=== PATIENT | female | born 1960 | race Caucasian/White ===

== ENCOUNTER 2017-06-11 11:31 | Emergency (ER) | payer OTHER ==
[~2017-06-11] VITALS: Ht 152.4 cm; Wt 58.1 kg
[~2017-06-11 11:31] MED LIST: CEPH-443 PO; ERYT1OIN6 RIGHT EYE; TRAM50TA2 PO; VIGA RIGHT EYE
[2017-06-11 11:36] VITALS: Ht 152.4 cm; Wt 58.1 kg
--- NOTE | 2017-06-11 12:50 | ERD ---
ER Documentation Chief Complaint Chief Complaint DIZZINESS ON AND OFF X 3 MONTHS. PAIN IN BOTH EYES. NO CARDIAC HX. HPI This is a 56-year-old female who presents the emergency department today complaining of intermittent dizziness for the past 6 months. States sometimes she feels dizzy when she walks and sometimes she feels dizzy when she goes from laying down to sitting. States that sometimes she gets a frontal headache. Denies any fevers or chills blurred vision, vomiting.. Denies any other medical problems. ROS All systems reviewed and are negative except as per history of present illness. Medications Home Meds Active Scripts Meclizine Hcl* (Antivert*) 12.5 Mg Tab, 12.5 MG PO Q6H Y for DIZZINESS, #20 TAB Prov:NAVI MANTILLA PA-C 06/11/17 Moxifloxacin Hcl* (Vigamox*) 0.5% - 3 Ml Opht, 1 DROP RIGHT EYE TID for 7 Days, EA Prov:BRADY REAL PA-C 07/27/15 Cephalexin* (Keflex*) 500 Mg Capsule, 500 MG PO QID for 5 Days, CAP Prov:BRADY REAL PA-C 07/27/15 Erythromycin (Erythromycin Opth) 3.5 Gm Oint..gm., 1 APPLIC RIGHT EYE QID for 5 Days, EA Prov:CHAVEZ ABRAHAM NP 07/22/15 Tramadol HCl (Tramadol HCl) 50 Mg Tab, 50 MG PO Q6 Y for PAIN, #10 TAB Prov:JIMENEZ CORONADO 04/05/15 Allergies Allergies: Coded Allergies: No Known Allergy (Unverified , 07/27/15) PMhx/Soc History of Surgery: No Anesthesia Reaction: No Hx Neurological Disorder: No Hx Respiratory Disorders: No Hx Cardiac Disorders: Yes (HTN) Hx Psychiatric Problems: No Hx Miscellaneous Medical Probl: No Hx Alcohol Use: No Hx Substance Use: No Hx Tobacco Use: No Smoking Status: Never smoker Physical Exam Vitals Vital Signs Date Time Temp Pulse Resp B/P Pulse Ox O2 Delivery O2 Flow Rate FiO2 06/11/17 13:22 72 109/58 06/11/17 13:21 63 127/69 06/11/17 13:20 62 18 123/65 98 Room Air 06/11/17 11:36 98.1 69 16 147/81 99 Physical Exam Const: NAD Head: Atraumatic Eyes: Normal Conjunctiva PERRLA. EOM intact. ENT: Normal External Ears, Nose and Mouth. TMs normal. No evidence of cerumen impaction. Patient is wearing a hearing aid in her right ear Neck: Full range of motion..~ No meningismus. Resp: Clear to auscultation bilaterally Cardio: Regular rate and rhythm, no murmurs Abd: Soft, non tender, non distended. Normal bowel sounds Skin: No petechiae or rashes Back: No midline or flank tenderness Ext: No cyanosis, or edema Neur: Awake and alert cranial nerves II through XII intact. No gait ataxia no pronator drift. Psych: Normal Mood and Affect Result Diagram: 06/11/17 1305 06/11/17 1305 Results 24 hrs Laboratory Tests Test 06/11/17 13:05 White Blood Count 7.410^3/ul Red Blood Count 4.3710^6/ul Hemoglobin 12.9g/dl Hematocrit 39.7% Mean Corpuscular Volume 90.8fl Mean Corpuscular Hemoglobin 29.5pg Mean Corpuscular Hemoglobin Concent 32.5g/dl Red Cell Distribution Width 12.8% Platelet Count 64667^3/UL Mean Platelet Volume 8.8fl Neutrophils % 62.3% Lymphocytes % 28.9% Monocytes % 6.0% Eosinophils % 1.8% Basophils % 0.7% Nucleated Red Blood Cells % 0.0/100WBC Neutrophils # 4.610^3/ul Lymphocytes # 2.110^3/ul Monocytes # 0.410^3/ul Eosinophils # 0.110^3/ul Basophils # 0.110^3/ul Nucleated Red Blood Cells # 0.010^3/ul Urine Color STRAW Urine Clarity CLEAR Urine pH 7.0 Urine Specific [place] 1.005 Urine Ketones NEGATIVEmg/dL Urine Nitrite NEGATIVEmg/dL Urine Bilirubin NEGATIVEmg/dL Urine Urobilinogen NEGATIVEmg/dL Urine Leukocyte Esterase TRACELeu/ul Urine Microscopic RBC 2/HPF Urine Microscopic WBC 1/HPF Urine Hemoglobin 2+mg/dL Urine Glucose NEGATIVEmg/dL Urine Total Protein NEGATIVEmg/dl Sodium Level 145mmol/L Potassium Level 4.3mmol/L Chloride Level 102mmol/L Carbon Dioxide Level 30mmol/L Anion Gap 17 Blood Urea Nitrogen 11mg/dl Creatinine 0.70mg/dl Glucose Level 118mg/dl Calcium Level 9.7mg/dl Total Bilirubin 0.2mg/dl Direct Bilirubin 0.00mg/dl Indirect Bilirubin 0.2mg/dl Aspartate Amino Transf (AST/SGOT) 28IU/L Alanine Aminotransferase (ALT/SGPT) 43IU/L Alkaline Phosphatase 110IU/L Total Protein 8.8g/dl Albumin 5.0g/dl Globulin 3.80g/dl Albumin/Globulin Ratio 1.31 DIAGNOSTIC IMAGING REPORT Patient: VINI OLIVEROS : 1960 Age: 56 Sex: F MR #: [id number] DOS: 06/11/17 0000 Ordering MD: NAVI MANTILLA PA-C Location: [facility] Room/Bed: PROCEDURE: CT Brain without contrast. CLINICAL INDICATION: 6-month history of dizziness. TECHNIQUE: A CT of the brain was performed on a [employer] 64-slice CT scanner utilizing axial imaging from the skull base through the vertex without IV contrast. Multiplanar reformatted images were made. Images were reviewed on a PACS workstation. The CTDIvol is 44.84 mGy and the DLP is 630.2 mGycm. One or the following dose reduction techniques were used: -Automated exposure control. -Adjustment of the mA and/or KV according to patient's size. -Use of iterative reconstruction technique. COMPARISON: None FINDINGS: There is no intracranial hemorrhage, mass effect, or midline shift. No extra- axial fluid collection is seen. The ventricles and sulci are normal in size and configuration. The density of the brain is normal, and the laura white matter differentiation appears well-preserved. The visualized paranasal sinuses and osseous structures are grossly unremarkable. IMPRESSION: 1. No acute intracranial process identified. RPTAT: A[facility] Physician Rebecca Date Time Electronically viewed and signed by Physician Rebecca on 06/11/2017 13: 06 JH/ CC: NAVI MANTILLA PA-C Procedures/MDM This is a 56-year-old female who presents emergency department today complaining of dizziness intermittently for the past 6 months and intermittent headaches. Patient is currently wearing a hearing aid in her right ear and has had that device for the past 4 years. I have explained to the patient that her hearing problems may be causing problems with her equilibrium and dizziness. Patient does not feel that is the case. I explained to the patient that given her age I would obtain laboratory workup as well as a head CT and EKG. Head CT noncontrast no acute intracranial process. There is no intracranial hemorrhage, mass-effect or midline shift. EKG read and interpreted by Dr. Stovall rate [address] elevation. No QT prolongation. Normal sinus rhythm. Low suspicion For acute GA, PE, pericarditis Laboratory workup the white blood cell count. She is not anemic. Platelets are within normal limits. Sodium is very mildly elevated otherwise electrodes are within normal limits. Glucose is within normal limits. Liver enzymes are within normal limits. UA shows trace leukocyte esterase. Negative for infection orthostatic vital signs 123/65 supine, 127/69 sitting, 109/58 standing Symptoms at this time is consistent with dizziness of uncertain etiology. Patient for anemia or cardiac cause of dizziness. Low suspicion for serious bacterial infection, meningitis. Related to patient's inner ear problems and possible vertigo. I explained this to the patient. I explained her that she needs to follow-up with her primary care physician for referral to ENT specialist and neurology specialist. Patient was also given a list of resources. Patient will be given a prescription for meclizine. At this time the patient is stable for discharge and outpatient management. Patient should follow up with their PCP in the next 1-2 days. They may return to the emergency department sooner for any persistent or worsening of symptoms. Patient understood and agreed with the plan. Departure Diagnosis: Primary Impression: Dizziness Condition: Fair NAVI MANTILLA PA-C Jun 11, 2017 12:50
--- NOTE | 2017-06-11 13:06 | RADRPT ---
PROCEDURE: CT Brain without contrast. CLINICAL INDICATION: 6-month history of dizziness. TECHNIQUE: A CT of the brain was performed on a GE [employer] 64-slice CT scanner utilizing axial imaging from the skull base through the vertex without IV contrast. Multiplanar reformatted images were made. Images were reviewed on a PACS workstation. The CTDIvol is 44.84 mGy and the DLP is 630 .2 mGycm. One or the following dose reduction techniques were used: -Automated exposure control. -Adjustment of the mA and/or KV according to patient's size. -Use of iterative reconstruction technique. COMPARISON: None FINDINGS: There is no intracranial hemorrhage, mass effect, or midline shift. No extra-axial fluid collection is seen. The ventricles and sulci are normal in size and configuration. The density of the brain is normal, and the laura white matter differentiation appears well-preserved. The visualized paranasal sinuses and osseous structures are grossly unremarkable. IMPRESSION: 1. No acute intracranial process identified. RPTAT: A[facility] Physician Rebecca Date Time Electronically viewed and signed by Physician Rebecca on 06/11/2017 13:06 /
[2017-06-11 13:20] VITALS: RESP 18
[2017-06-11 13:22] VITALS: BP 109/58; PULSE 72
[2017-06-11 13:32] LABS: BASOPHIL # 0.1 10^3/ul (0.0-0.1); BASOPHILS % 0.7 % (0.0-2.0); EOSINOPHILS # 0.1 10^3/ul (0.0-0.5); EOSINOPHILS % 1.8 % (0.0-7.0); HEMATOCRIT 39.7 % (37.0-47.0); HEMOGLOBIN 12.9 g/dl (12.0-16.0); LYMPHOCYTES # 2.1 10^3/ul (0.8-2.9); LYMPHOCYTES % 28.9 % (15.0-51.0); MEAN CORPUSCULAR HEMOGLOBIN 29.5 pg (29.0-33.0); MEAN CORPUSCULAR HGB CONC 32.5 g/dl (32.0-37.0); MEAN CORPUSCULAR VOLUME 90.8 fl (82.0-101.0); MEAN PLATELET VOLUME 8.8 fl (7.4-10.4); MONOCYTE # 0.4 10^3/ul (0.3-0.9); NEUTROPHIL # 4.6 10^3/ul (1.6-7.5); NEUTROPHILS % 62.3 % (39.0-77.0); PLATELET COUNT 300 10^3/UL (140-415); RED BLOOD COUNT 4.37 10^6/ul (4.20-5.40); RED CELL DISTRIBUTION WIDTH 12.8 % (11.5-14.5); WHITE BLOOD COUNT 7.4 10^3/ul (4.8-10.8)
[2017-06-11 13:42] LABS: ADD UMIC YES; UR ASCORBIC ACID NEGATIVE (NEGATIVE); UR BILIRUBIN (Dip) NEGATIVE (NEGATIVE); UR BLOOD (Dip) 2+ mg/dL (NEGATIVE); UR CLARITY CLEAR (CLEAR); UR COLOR STRAW (YELLOW); UR GLUCOSE (Dip) NEGATIVE (NEGATIVE); UR KETONES (Dip) NEGATIVE (NEGATIVE); UR LEUKOCYTE ESTERASE (Dip) TRACE Leu/ul (NEGATIVE); UR NITRITE (Dip) NEGATIVE (NEGATIVE); UR RBC 2 /HPF (0-5); UR SPECIFIC GRAVITY (Dip) 1.005 (1.003-1.030); UR TOTAL PROTEIN (Dip) NEGATIVE (NEGATIVE); UR UROBILINOGEN (Dip) NEGATIVE (NEGATIVE)
[2017-06-11 13:54] LABS: ALBUMIN/GLOBULIN RATIO 1.31; BILIRUBIN,INDIRECT 0.2 mg/dl (0-1.1); BILIRUBIN,TOTAL 0.2 mg/dl (0.2-1.3); CALCIUM 9.7 mg/dl (8.4-10.2); CREATININE 0.7 mg/dl (0.44-1.00); POTASSIUM 4.3 mmol/L (3.5-5.1); TOTAL PROTEIN 8.8 g/dl (6.1-8.1)
[2017-06-11] MEDS ORDERED: MECL12.574 PO (14:34)
== END 2017-06-11 15:07 | disposition home or self-care (01) ==
LOC: FTE 11:31
DX: R42 Dizziness and giddiness (principal); I10 Essential (primary) hypertension
CPT/HCPCS: 70450; 80053; 81001; 85025; 93005; Z7502

== ENCOUNTER 2017-06-30 12:49 | Emergency (ER) | payer OTHER ==
[~2017-06-30] VITALS: Ht 157.5 cm; Wt 57.2 kg
[~2017-06-30 12:49] MED LIST changes: +MECL12.574 PO
[2017-06-30 12:52] VITALS: Ht 157.5 cm; Wt 57.2 kg
[2017-06-30] MEDS ORDERED: ONDANSETRON (ODT) 4 MG TAB ODT STA (13:11)
[2017-06-30] MEDS ORDERED: LORA-441 PO (13:28)
[2017-06-30] MEDS ORDERED: MECL12.574 PO (13:28)
[2017-06-30] MEDS ORDERED: MECLIZINE 12.5 MG TAB PO ONE (13:30)
--- NOTE | 2017-06-30 14:43 | ERD ---
ER Documentation Chief Complaint Chief Complaint Complains of dizziness since yesterday HPI Patient is a 57-year-old female with no medical problems who presents with dizziness. She was brought in by her friend. She has a headache off and on with dizziness. The headache is left-sided. She has had this off and on for " a while" which she describes as years. She said that this episode started yesterday and she tried baby aspirin. She had nausea but no vomiting. She had a CT head done on June 11 of this year which was negative per radiology. Upon review of old medical records this is the patient's seventh visit to the ER since 2013. She goes to a local clinic for her care. ROS All systems reviewed and are negative except as per history of present illness. Medications Home Meds Active Scripts Lorazepam* (Ativan*) 0.5 Mg Tablet, 0.5 MG PO Q8, #6 TAB Prov:JUDE CUNNINGHAM MD 06/30/17 Meclizine Hcl* (Antivert*) 12.5 Mg Tab, 12.5 MG PO Q6H Y for DIZZINESS, #20 TAB Prov:JUDE CUNNINGHAM MD 06/30/17 Meclizine Hcl* (Antivert*) 12.5 Mg Tab, 12.5 MG PO Q6H Y for DIZZINESS, #20 TAB Prov:NAVI MANTILLA PA-C 06/11/17 Moxifloxacin Hcl* (Vigamox*) 0.5% - 3 Ml Opht, 1 DROP RIGHT EYE TID for 7 Days, EA Prov:BRADY REAL PA-C 07/27/15 Cephalexin* (Keflex*) 500 Mg Capsule, 500 MG PO QID for 5 Days, CAP Prov:BRADY REAL PA-C 07/27/15 Erythromycin (Erythromycin Opth) 3.5 Gm Oint..gm., 1 APPLIC RIGHT EYE QID for 5 Days, EA Prov:CHAVEZ ABRAHAM NP 07/22/15 Tramadol HCl (Tramadol HCl) 50 Mg Tab, 50 MG PO Q6 Y for PAIN, #10 TAB Prov:JIMENEZ CORONADO 04/05/15 Allergies Allergies: Coded Allergies: No Known Allergy (Unverified , 07/27/15) PMhx/Soc History of Surgery: No Anesthesia Reaction: No Hx Neurological Disorder: No Hx Respiratory Disorders: No Hx Cardiac Disorders: Yes (HTN) Hx Psychiatric Problems: No Hx Miscellaneous Medical Probl: No Hx Alcohol Use: No Hx Substance Use: No Hx Tobacco Use: No Smoking Status: Never smoker FmHx Family History: No diabetes Physical Exam Vitals Vital Signs Date Time Temp Pulse Resp B/P Pulse Ox O2 Delivery O2 Flow Rate FiO2 06/30/17 12:52 98.6 75 20 151/74 98 Physical Exam Const: Mild distress Head: Atraumatic Eyes: Normal Conjunctiva ENT: Normal External Ears, Nose and Mouth. Neck: Full range of motion..~ No meningismus. Resp: Clear to auscultation bilaterally Cardio: Regular rate and rhythm, no murmurs Abd: Soft, non tender, non distended. Normal bowel sounds Skin: No petechiae or rashes Back: No midline or flank tenderness Ext: No cyanosis, or edema Neur: Awake and alert, cranial nerves II through XII intact, strength is 5 out of 5 in all 4 extremities, no slurred speech Psych: Normal Mood and Affect Results 24 hrs Laboratory Tests Test 06/30/17 13:21 Bedside Glucose 116mg/dL Current Medications Medications (Trade) Dose Ordered Sig/Rowena Route PRN Reason Start Time Stop Time Status Last Admin Dose Admin Meclizine HCl (Antivert) 25 mg ONCE ONCE PO 06/30/17 13:30 06/30/17 13:31 DC 06/30/17 13:23 Ondansetron HCl (Zofran Odt) 4 mg ONCE STAT ODT 06/30/17 13:11 06/30/17 13:12 DC 06/30/17 13:23 Procedures/MDM EKG read by me: Rate/Rhythm: Regular rate and rhythm at a normal rate Intervals: Normal Impression: No evidence of ischemia or arrhythmia Accu-Chek is normal. CT Head done June 11, 2017 was negative per radiology. Patient is a 57-year-old female presents with dizziness and headache. I believe this is most likely anxiety and not something more sinister. Her EKG shows no signs of ischemia. Accu-Chek was normal I doubt hypoglycemia. CT head was done recently which was negative and I doubt intracranial hemorrhage or mass. I doubt stroke. The patient be discharged home but will need to follow-up closely with her primary doctor within 24-48 hours. She can return sooner for any worsening symptoms. Departure Diagnosis: Primary Impression: Anxiety Additional Impression: Dizziness Condition: Fair Patient Instructions: Anxiety Reaction, Dizziness, Unk Cause Additional Instructions: Llame al doctor nomnuria granger (Referral Sources) MAANA y le sivan NATASHA PARA DENTRO DE SIVAN SEMANA. Dgale a la secretaria que nosotros le instruimos hacer esta natasha.Avise o llame si thurman condicin se empeora antes de la natasha. JUDE CUNNINGHAM MD Jun 30, 2017 14:43
== END 2017-06-30 14:53 | disposition home or self-care (01) ==
LOC: FTE 12:49
DX: F41.9 Anxiety disorder, unspecified (principal)
CPT/HCPCS: 82962; Z7502; Z7610; 93005

== ENCOUNTER 2018-03-17 14:18 | Observation (INO) | END 2018-03-18 18:40 | disposition home or self-care (01) ==